=== PATIENT | female | born 1960 | race Asian ===

== ENCOUNTER 2022-05-26 11:21 | Emergency (ER) | payer OTHER ==
[~2022-05-26] VITALS: Ht 152.4 cm; Wt 45.4 kg
[~2022-05-26 11:21] MED LIST: ALBU90OI; ALBU90OI INH; ASPI325; AZIT250 PO; AZIT500 PO; COUGH; DIPHENHYD; HYDACE5 PO; LIDO; MONT10T; PRED20 PO; RXTRAM50 PO; TRAM50 PO; [UNRECOGNIZED DRUG - OTHER]; [UNRECOGNIZED DRUG - OTHER]
[2022-05-26] MEDS ORDERED: Cleocin HCl150 MG PO (11:47)
== END 2022-05-26 12:15 | disposition home or self-care (01) ==
LOC: ER 11:21
DX: K04.7 Periapical abscess without sinus (principal); Z88.0 Allergy status to penicillin
CPT/HCPCS: 99282